=== PATIENT | female | born 1965 | race Caucasian/White ===

== ENCOUNTER 2017-10-19 12:59 | Outpatient (CLI) | payer BC | END 2017-10-19 13:00 | disposition home or self-care (01) | LOC: MERGE 12:59 → PTMAIN 12:59 | PROVIDERS: ATTEND Otolaryngology | DX: K21.9 Gastro-esophageal reflux disease without esophagitis (principal) | CPT/HCPCS: 31579 ==

== ENCOUNTER → 2017-12-25 | Outpatient (CLI) | payer BC ==
--- NOTE | 2017-12-25 12:39 | FL ---
EXAMINATION TYPE: FL barium swallow DATE OF EXAM: 12/25/2017 CLINICAL HISTORY: Gastroesophageal reflux. Hoarse voice and irritation. TECHNIQUE: A double contrast esophagram is performed utilizing air and barium. A total of 2.29 akiko giovani of fluoroscopic time was utilized during procedure. 35 fluoroscopic images were saved. COMPARISON: None FINDINGS: The esophagus shows normal motility and emptying into the stomach through the gastroesophag eal junction, however focal residual adherent contrast is seen within the midthoracic esophagus throu ghout the examination despite repeated swallows. No discrete mucosal mass or ulceration is seen, meyer alexis esophagitis is possible at this location. Given this patient's history of chronic gastroesophagea l reflux further evaluation with direct visualization could be performed. Moderate intraesophageal re flux is seen throughout the examination. No evidence of hiatal hernia or stricture noted. Mild gastr oesophageal reflux was seen during real time performance of this study. IMPRESSION: 1. Focal delayed passage of adherent contrast to the midthoracic esophageal mucosa without stricture or mucosal ulceration identified. This may be on the basis of esophagitis and direct visualization wi th or EGD could be performed. 2. Moderate degree intraesophageal reflux and mild gastroesophageal reflux. 3. No hiatal hernia.
== END | disposition home or self-care (01) ==
LOC: RADFLWHC 10:52
PROVIDERS: ATTEND Otolaryngology
DX: K21.9 Gastro-esophageal reflux disease without esophagitis (principal)
CPT/HCPCS: 74220

== ENCOUNTER 2019-10-07 15:55 | Emergency (ER) | payer BC ==
[2019-10-07 16:27] VITALS: PULSE 81; RESP 18; TEMP 98
[2019-10-07] MEDS ORDERED: HYDROmorphone 0.5 MG/0.5 ML SYRINGE IVP STA (18:07)
[2019-10-07] MEDS ORDERED: ONDANSETRON 4 MG/2 ML VIAL IVP STA (18:08)
[2019-10-07 19:01] LABS: Basophils % (A) 0 %; Eosinophils # (A) 0.2 k/uL (0-0.7); Eosinophils % (A) 3 %; HCT 45.4 % (34.0-46.0); HGB 15.1 gm/dL (11.4-16.0); Lymphocytes # (A) 1.7 k/uL (1.0-4.8); Lymphocytes % (A) 31 %; MCH 31.6 pg (25.0-35.0); MCHC 33.3 g/dL (31.0-37.0); MCV 94.7 fL (80.0-100.0); Mean Platelet Volume 7.7; Monocytes # (A) 0.4 k/uL (0-1.0); Monocytes % (A) 7 %; Neutrophils # (A) 3.1 k/uL (1.3-7.7); Neutrophils % (A) 56 %; Platelet Count 272 k/uL (150-450); RBC 4.79 m/uL (3.80-5.40); RDW 12.8 % (11.5-15.5); WBC 5.5 k/uL (3.8-10.6)
--- NOTE | 2019-10-07 19:07 | CT ---
EXAMINATION TYPE: CT brain wo con DATE OF EXAM: 10/07/2019 COMPARISON: None HISTORY: OH, DIZZINESS, NAUSEA CT DLP: 1085.4 mGycm Automated exposure control for dose reduction was used. Ventricles have normal size. There is no mass effect nor midline shift. There is no sign of intracran ial hemorrhage. The calvarium is intact. There is no evidence of cerebral edema. IMPRESSION: Negative head CT scan.
[2019-10-07 19:13] LABS: Albumin 4.6 g/dL (3.5-5.0); Potassium 4.3 mmol/L (3.5-5.1); Total Bilirubin 0.5 mg/dL (0.2-1.3); Total Protein 7.5 g/dL (6.3-8.2)
--- NOTE | 2019-10-07 19:18 | ED ---
Headache HPI - General Chief Complaint: Headache Stated Complaint: headache Time Seen by Provider: 10/07/19 17:52 Mode of arrival: ambulatory Limitations: no limitations - History of Present Illness Initial Comments: 54-year-old feel presented for multiple complaints. Patient states she has had enlarged lymph nodes in her groin for the past few weeks. She states she has had this evaluated outpatient and had ultrasound revealed inflammation of the lymph nodes no other specific findings. Patient states she feels that the lymph nodes in her neck are enlarged. Patient denies any fever. Denies falls trauma to the head or neck. Patient states that the lymph nodes are painful in the posterior neck. Denies stiffness. Patient denies any visual changes she states sometimes feels lightheaded she denies sensation of room is spinning denies the imbalances. Patient has a weakness in the upper or lower extremities or sensation deficits. Patient states she has had a headache for the past 2 weeks but fluctuates in intensity she denies this being a severe headache more mild to moderate however persistent. Patient denies sudden onset headache. Patient states she is having difficulty secondary to covid-19 with outpatient evaluation and thus why she presented today. Patient harvinder any acute changes in symptoms. - Related Data Allergies Allergy/AdvReac Type Severity Reaction Status Date / Time erythromycin base Allergy Nausea & Verified 10/07/19 16:27 Vomiting Sulfa (Sulfonamide Allergy Unknown Verified 10/07/19 16:27 Antibiotics) Review of Systems ROS Statement: Those systems with pertinent positive or pertinent negative responses have been documented in the HPI. ROS Other: All systems not noted in ROS Statement are negative. Past Medical History Past Medical History: No Reported History History of Any Multi-Drug Resistant Organisms: None Reported Past Surgical History: Hysterectomy Past Psychological History: No Psychological Hx Reported Smoking Status: Never smoker Past Alcohol Use History: Occasional Past Drug Use History: None Reported General Exam - General Exam Comments Initial Comments: General: The patient is awake and alert, in no distress Eye: +3 mm pupils are equal, round and reactive to light, extra-ocular movements are intact. No nystagmus. There is normal conjunctiva bilaterally. No signs of icterus. Ears, nose, mouth and throat: There are moist mucous membranes and no oral lesions. Neck: The neck is supple, there is no tenderness or JVD. No palpable posterior lymphadenopathy. Cardiovascular: There is a regular rate and rhythm. No murmur, rub or gallop is appreciated. Respiratory: Lungs are clear to auscultation, respirations are non-labored, breath sounds are equal. No wheezes, stridor, rales, or rhonchi. Musculoskeletal: Normal ROM, no tenderness. Strength 5/5. Sensation intact. Pulses equal bilaterally 2+. Neurological: A&O x 3. CN II-XII intact, memory intact to immediately, intermediate and terminal carman recall. Able to follow simple verbal. Able to name a common object (pen). High quality, labial (pa) and lingual (la) speech. Low quality posterior pharynx/larynx (ga) voice sounds. Able to express general knowledge (days in a week). No hemineglect or inattention noted. Finger agnosia (-) and spatially oriented (identified L index finger touched R shoulder with L index finger). Light touch and temperature sensation present over the face, chest, abdomen, back, UE bilaterally, and LE bilaterally. Able to localize point during point localization b/l and extinction. No visible bulk atrophy, hypertrophy, fasciculations, or myoclonus of the UE or LE b/l. Full PROM in UE and LE b/l. Bilateral muscle strength 5/5 for the following muscles: deltoid, biceps, triceps, brachioradialis, wrist extensors/flexor, hip flexor, hip abductors/adductors, hamstrings, quadriceps, feet dorsiflexors/plantar flexors. Finger to nose, finger to the examiners finger, and heel to thomas coordinated and accurate b/l. Coordinated and even demonstration of hand flip, finger to thumb, and toe tap b/l. Gait is coordinated and even in stride with tandem. (-) pronator drift. No nuchal rigidity. Skin: Skin is warm and dry and no rashes or lesions are noted. Psychiatric: Cooperative, appropriate mood & affect, normal judgment. Limitations: no limitations Course Vital Signs 10/07/19 10/07/19 16:22 19:30 Temperature 98 F Pulse Rate 81 81 Respiratory 18 18 Rate Blood Pressure 154/107 120/80 O2 Sat by Pulse 99 98 Oximetry Medical Decision Making - Medical Decision Making Very well-appearing 54-year-old female presents today for chief complaint of he adache 2 week enlarged lymph nodes. No appreciated lymph nodes on physical examination. No focal neurological deficits. No sudden onset or severe headache. CT brain (-). Improvement of pain in the ER. Patient labs stable, no abnormalities of the blood cell count. I recommend patient have outpatient with a possible MRI ordered by primary care provider, as well as neurology follow-up and further evaluation of inguinal lymphadenopathy. Patient is agreeable to this care plan discharge at this time case is discussed at length mentally provider Dr. Graves was agreeable to discharge - Lab Data Result diagrams: 10/07/19 18:33 10/07/19 18:33 Lab Results 10/07/19 10/07/19 Range/Units 18:33 18:33 WBC 5.5 (3.8-10.6) k/uL RBC 4.79 (3.80-5.40) m/uL Hgb 15.1 (11.4-16.0) gm/dL Hct 45.4 (34.0-46.0) % MCV 94.7 (80.0-100.0) fL MCH 31.6 (25.0-35.0) pg MCHC 33.3 (31.0-37.0) g/dL RDW 12.8 (11.5-15.5) % Plt Count 272 (150-450) k/uL Neutrophils % 56 % Lymphocytes % 31 % Monocytes % 7 % Eosinophils % 3 % Basophils % 0 % Neutrophils # 3.1 (1.3-7.7) k/uL Lymphocytes # 1.7 (1.0-4.8) k/uL Monocytes # 0.4 (0-1.0) k/uL Eosinophils # 0.2 (0-0.7) k/uL Basophils # 0.0 (0-0.2) k/uL Sodium 140 (137-145) mmol/L Potassium 4.3 (3.5-5.1) mmol/L Chloride 105 (98-107) mmol/L Carbon Dioxide 26 (22-30) mmol/L Anion Gap 9 mmol/L BUN 13 (7-17) mg/dL Creatinine 0.86 (0.52-1.04) mg/dL Est GFR (CKD-EPI)AfAm 90 (>60 ml/min/1.73 sqM) Est GFR (CKD-EPI)NonAf 78 (>60 ml/min/1.73 sqM) Glucose 85 (74-99) mg/dL Calcium 10.0 (8.4-10.2) mg/dL Total Bilirubin 0.5 (0.2-1.3) mg/dL AST 27 (14-36) U/L ALT 14 (4-34) U/L Alkaline Phosphatase 67 (38-126) U/L Total Protein 7.5 (6.3-8.2) g/dL Albumin 4.6 (3.5-5.0) g/dL Disposition Clinical Impression: Headache, Lymphadenopathy Disposition: HOME SELF-CARE Condition: Good Instructions (If sedation given, give patient instructions): Acute Headache (ED) Additional Instructions: Please use medication as discussed. Please follow-up with family doctor in the next 2 days. Please return to emergency room if the symptoms increase or wors en or for any other concerns. Is patient prescribed a controlled substance at d/c from ED?: No Referrals: Nonstaff,Physician [Primary Care Provider] - 1-2 days Time of Disposition: 19:17
[2019-10-07 19:30] VITALS: BP 120/80
== END 2019-10-07 19:46 | disposition home or self-care (01) ==
LOC: EC 15:55
DX: R51 Headache (principal); R59.1 Generalized enlarged lymph nodes; Z88.1 Allergy status to other antibiotic agents; Z88.2 Allergy status to sulfonamides
CPT/HCPCS: 36415; 80053; 85025; 70450; 99284; 96374; 96375; J2405; J1170